=== PATIENT | female | born 1970 | race Caucasian/White ===

== ENCOUNTER 2021-10-15 07:42 | Outpatient (CLI) | payer BC ==
[2021-10-15 08:35] LABS: #Basophils 0.1 10x3/uL (0.0-0.2); #Eosinphils 0.2 10x3/uL (0.0-0.5); #Monocytes 0.4 10x3/uL (0.0-1.1); #Neutrophils 3.6 10x3/uL (1.5-8.4); %Basophils 0.8 % (0.0-2.0); %Eosinophils 3.7 % (0.0-6.0); %Lymphocytes 28.7 % (18.0-47.0); %Monocytes 6.9 % (0.0-10.0); %Neutrophils 59.7 % (40.0-75.0); Hemoglobin 13.7 g/dL (12.0-15.5); Mean Corpuscular HGB CONC 33.4 g/dL (32.0-36.0); Mean Corpuscular Hemoglobin 31.9 pg (27.0-33.0); Mean Corpuscular Volume 95.3 fl (81.6-98.3); Mean Platelet Volume 10.2 fl (7.4-10.4); Platelet Count 231 10x3/uL (150-450); RBC Distribution Width 12.6 % (11.5-14.5)
[2021-10-15 08:47] LABS: Anion Gap 11 mmol/L (10-20); BUN (Urea Nitrogen) 19 mg/dL (9.8-20.1); Calc. Creatinine Clearance 0 mL/min (70-130); Calcium 9.1 mg/dL (7.8-10.44); Carbon Dioxide 27 mmol/L (22-29); Chloride 105 mmol/L (98-107); Glucose 114 mg/dL (70-105); Potassium 4.3 mmol/L (3.5-5.1); Sodium 139 mmol/L (136-145)
[2021-10-15 22:52] LABS: SARS-CoV-2 PCR by NAA Not Detected (NotDetected)
== END 2021-10-15 07:43 | disposition home or self-care (01) ==
LOC: LABBT 07:42
PROVIDERS: ATTEND Specialist
DX: Z01.818 Encounter for other preprocedural examination (principal); N63.10 Unspecified lump in the right breast, unspecified quadrant; Z20.822 Contact with and (suspected) exposure to COVID-19
CPT/HCPCS: 80048; 85025; 93005; 93010; U0003; U0005

== ENCOUNTER 2021-10-18 10:31 | Day surgery (SDC) | payer BC ==
[2021-10-16 14:43] VITALS: BMI 24.7
[2021-10-18] MEDS ORDERED: Acetaminophen 500 MG TAB ONE (11:42)
[2021-10-18] MEDS ORDERED: Ketorolac Tromethamine 30 MG/ML VIAL ONE (11:42)
[2021-10-18] MEDS ORDERED: Scopolamine 1.5 mg/72 hour Patch ONE (11:42)
[2021-10-18] MEDS ORDERED: Bupivacaine 0.25% HCL 30 ML VIAL ONE (12:04)
[2021-10-18] MEDS ORDERED: Xylocaine 1% w/ Epi 1:100K 10 ML VIAL ONE (12:04)
[2021-10-18] MEDS ORDERED: Midazolam HCl 2 mg/2 ml Vial ONE (12:17)
[2021-10-18] MEDS ORDERED: Fentanyl 100 MCG/2 ML VIAL ONE (12:30)
[2021-10-18] MEDS ORDERED: PROPOFOL 200 MG/20 ML VIAL ONE (13:03)
[2021-10-18] MEDS ORDERED: PHENYLEPHRINE-NS 100 MCG/ML 10 ML SYRINGE ONE (13:03)
[2021-10-18] MEDS ORDERED: Lidocaine 1% PF 5 ML VIAL ONE (13:03)
[2021-10-18] MEDS ORDERED: Ondansetron PF 4 MG/2 ML Vial ONE (13:03)
[2021-10-18] MEDS ORDERED: ePHEDrine 50 MG/ML VIAL ONE (13:03)
[2021-10-18] MEDS ORDERED: HYDROcodone/Acetaminophen 5/325 mg Tablet ONE (15:03)
== END 2021-10-18 15:47 | disposition home or self-care (01) ==
LOC: SDC 10:31
PROVIDERS: ATTEND Specialist
PROC: 0HBT0ZZ Excision of Right Breast, Open Approach (ICD-10-PCS; principal; 2021-10-18)
DX: D05.11 Intraductal carcinoma in situ of right breast (principal); I10 Essential (primary) hypertension; E78.5 Hyperlipidemia, unspecified; G43.909 Migraine, unspecified, not intractable, without status migrainosus; Q60.0 Renal agenesis, unilateral; Z79.899 Other long term (current) drug therapy
CPT/HCPCS: 76098; 88307; 88341; 88342; C1713; J1885; J2250; J2405; J2704; J3010; J3490; S0020

== ENCOUNTER 2021-11-13 09:27 | Outpatient (CLI) | payer BC | END 2021-11-13 09:28 | disposition home or self-care (01) | LOC: BICMRI 09:27 | PROVIDERS: ATTEND Internal Medicine Hematology & Oncology | DX: D05.11 Intraductal carcinoma in situ of right breast (principal) | CPT/HCPCS: A9577; C8908 ==